=== PATIENT | female | born 1990 | race Two or more races ===

== ENCOUNTER 2019-06-19 02:57 | Emergency (ER) | payer OTHER ==
[~2019-06-19] VITALS: Ht 154.9 cm; Wt 102.1 kg
[2019-06-19] MEDS ORDERED: KETO10TA2 PO (10:27)
[2019-06-19] MEDS ORDERED: CLINDAMYCIN HC300 MG PO (10:27)
[2019-06-19] MEDS ORDERED: INTESTINEX680 M1 PO (10:27)
== END 2019-06-19 11:00 | disposition home or self-care (01) ==
LOC: ER 02:57
DX: K12.2 Cellulitis and abscess of mouth (principal)